=== PATIENT | male | born 1990 | race Caucasian/White ===

== ENCOUNTER 2019-07-18 16:49 | Emergency (ER) | payer BC ==
[2019-07-18 17:07] VITALS: PULSE 68
--- NOTE | 2019-07-18 18:11 | EDM.PDOC ---
ED HPI GENERAL MEDICAL PROBLEM - General Chief Complaint: General Stated Complaint: needs abcess drained belly button Time Seen by Provider: 07/18/19 18:03 Source of Information: Reports: Patient - History of Present Illness INITIAL COMMENTS - FREE TEXT/NARRATIVE: HISTORY AND PHYSICAL: History of present illness: [Patient presents with history of umbilical abscess, which is recurrent, last drained 5 years prior no fever nausea vomiting chills sweats Changes tried to drain the lesion at home, as he usually does without benefit I did use an 11 blade to make a small incision to try and achieve drainage however there was no exudative discharge, the area is slightly indurated at 3: 00 on the navel mother was no umbilical hernia after incision there was odor stent with gram-negative rods type odor however no exudate was expressed I did culture some cereus Cerous sanguinous fluid/blood] No fever nausea vomiting chills sweats Review of systems: As per history of present illness and below otherwise all systems reviewed and negative. Past medical history: As per history of present illness and as reviewed below otherwise noncontributory. Surgical history: As per history of present illness and as reviewed below otherwise noncontributory. Social history: No reported history of drug or alcohol abuse. Family history: As per history of present illness and as reviewed below otherwise noncontributory. Physical exam: HEENT: Atraumatic, normocephalic, pupils reactive, negative for conjunctival pallor or scleral icterus, mucous membranes moist, throat clear, neck supple, nontender, trachea midline. Lungs: Clear to auscultation, breath sounds equal bilaterally, chest nontender. Heart: S1S2, regular, negative for clicks, rubs, or JVD. Abdomen: Soft, nondistended, nontender. Negative for masses or hepatosplenomegaly. Negative for costovertebral tenderness. [place] is slightly bulged and reddened consistent with early abscess formation no umbilical hernia appreciated there is induration to the anatomical left 3:00 on the umbilicus no exudate is expressed Pelvis: Stable nontender. Genitourinary: Deferred. Rectal: Deferred. Extremities: Atraumatic, negative for cords or calf pain. Neurovascular unremarkable. Neuro: Awake, alert, oriented. Cranial nerves II through XII unremarkable. Cerebellum unremarkable. Motor and sensory unremarkable throughout. Exam nonfocal. Diagnostics: [Culture ] Therapeutics: [rocephine Bactrim General surgery RP W ] Impression: [Umbilical cellulitis-small lesion of induration approximately the size of a quarter roll to the navel] Definitive disposition and diagnosis as appropriate pending reevaluation and review of above. Abdomen Pain Score (Numeric/FACES): 2 - Related Data Allergies Allergy/AdvReac Type Severity Reaction Status Date / Time No Known Allergies Allergy Verified 07/18/19 16:59 Home Meds: Home Meds . [No Known Home Meds] 09/22/14 [History] Past Medical History - Past Health History Medical/Surgical History: Denies Medical/Surgical History - Infectious Disease History Infectious Disease History: Reports: Chicken Pox Social & Family History - Family History Family Medical History: Noncontributory - Tobacco Use Smoking Status *Q: Never Smoker - Caffeine Use Caffeine Use: Reports: Coffee - Recreational Drug Use Recreational Drug Use: Yes Recreational Drug Type: Reports: Marijuana/Hashish Other Recreational Drug Type: a few months ago Recreational Drug Use Frequency: Rarely ED ROS GENERAL - Review of Systems Review Of Systems: See Below ED EXAM, GENERAL - Physical Exam Exam: See Below Course - Vital Signs Last Recorded V/S: Last Vital Signs Temp 97.9 F 07/18/19 16:59 Pulse 68 07/18/19 16:59 Resp 17 07/18/19 16:59 BP 135/89 07/18/19 16:59 Pulse Ox 99 07/18/19 16:59 - Orders/Labs/Meds Meds: Medications Discontinued Medications Generic Name Dose Route Start Last Admin Trade Name Prema PRN Reason Stop Dose Admin Lidocaine HCl 5 ml 07/18/19 17:31 07/18/19 17:54 Xylocaine-Mpf 1% INJECT 07/18/19 17:32 5 ml ONETIME ONE Administration Departure - Departure Time of Disposition: 18:11 Disposition: Home, Self-Care 01 Condition: Good Clinical Impression: Cellulitis - Discharge Information Referrals: PCP,Not In Area [Primary Care Provider] - Additional Instructions: Patient is prescribed Return if symptoms persist or worsen Follow-up with general surgery, referral for [facility] - [facility] Professional Building [address] [place] [address], [address] [place] [address] The following information is given to patients seen in the emergency department who are being discharged to home. This information is to outline your options for follow-up care. We provide all patients seen in our emergency department with a follow-up referral. The need for follow-up, as well as the timing and circumstances, are variable depending upon the specifics of your emergency department visit. If you don't have a primary care physician on staff, we will provide you with a referral. We always advise you to contact your personal physician following an emergency department visit to inform them of the circumstance of the visit and for follow-up with them and/or the need for any referrals to a consulting specialist. The emergency department will also refer you to a specialist when appropriate. This referral assures that you have the opportunity for follow-up care with a specialist. All of these measure are taken in an effort to provide you with optimal care, which includes your follow-up. Under all circumstances we always encourage you to contact your private physician who remains a resource for coordinating your care. When calling for follow-up care, please make the office aware that this follow-up is from your recent emergency room visit. If for any reason you are refused follow-up, please contact the [facility] emergency department at and asked to speak to the emergency department charge nurse. Sepsis Event Note - Evaluation Sepsis Screening Result: No Definite Risk - Focused Exam Vital Signs: Vital Signs Temp Pulse Resp BP Pulse Ox 07/18/19 16:59 97.9 F 68 17 135/89 99 Date Exam was Performed: 07/18/19 Time Exam was Performed: 18:03
[2019-07-18] MEDS ORDERED: cefTRIAXone 1 GM Vial IM ONE (18:13)
[2019-07-18] MEDS ORDERED: Lidocaine 1% 2 ML ONE (18:17)
[2019-07-18 19:23] VITALS: BP 136/77
== END 2019-07-18 18:35 | disposition home or self-care (01) ==
LOC: MW.ED 16:49
DX: L03.316 Cellulitis of umbilicus (principal)
CPT/HCPCS: 10060; 87070; 96372; 99283; J0696; J2001

== ENCOUNTER 2020-08-17 12:31 | Day surgery (SDC) | payer BC ==
[2020-08-17] MEDS ORDERED: Iopamidol 200-M 10 ML vial ITHECAL ONE (13:00)
[2020-08-17] MEDS ORDERED: Ropivacaine 0.5% 5 MG/ML 30 ML SDV INJECT ONE (13:00)
[2020-08-17] MEDS ORDERED: Betamethasone Acetate/Betamethasone Sod Phosphate 30 MG/5 ML MDV EPIDUR ONE (13:00)
[2020-08-17] MEDS ORDERED: Lidocaine 2% 5 ML SDV INJECT ONE (13:00)
--- NOTE | 2020-08-17 16:50 | OR ---
SURGEON: Melania Delgado D.O. DATE OF PROCEDURE: 08/17/2020 PRIMARY SURGEON: Melania Delgado DO ASSISTANTS: OR staff present: 1. Kelsi Fragoso. 2. Delio Williamson. 3. RT. Yesenia WOUND CLASS: I. PREOPERATIVE DIAGNOSIS: Coccydynia. POSTOPERATIVE DIAGNOSIS: Coccydynia. PROCEDURES PERFORMED: 1. Coccyx injection. 2. Fluoroscopic guidance for needle placement. 3. Local with oral Valium for sedation. SCREENING QUESTIONS: The patient answered "No" to all the followin. Are you allergic to iodine, Betadine or latex? 2. Do you have a bleeding disorder? 3. Do you have any joint replacements, heart valve replacements or a pacemaker? 4. Are you on any anti-inflammatories or blood thinners? 5. Do you have any current local or systemic infections? DESCRIPTION OF PROCEDURE: The patient had the procedure thoroughly explained including all possible risks, benefits and alternatives. Consent was signed in my clinic indicating understanding and willingness to proceed. The patient presented to the outpatient Surgery Center and was escorted to the dressing room to disrobe and change into a hospital gown. Preoperative vital signs were taken and stable. The patient reported that Valium was taken prior to the procedure. The patient was brought to the procedure room and placed in the prone position on the procedure room table. A pillow was placed under the hips in order to flatten the lumbar lordosis. The back was prepped with ChloraPrep and sterilely draped. All personnel in the operating room were dressed in appropriate attire including surgical scrubs, head and shoe covers. This was to ensure sterility while in the treatment room. During the time fluoroscopy was in use all personnel in the operating room wore lead stevens with thyroid collars. Sterile technique was used during the procedure. The patient was awake and conversant throughout the procedure. The fluoroscope was positioned to provide an AP/Lateral view of the sacrum and coccyx. There was no evidence of infection at the site of needle insertion. The skin was anesthetized with 2% Lidocaine with a sterile 27-gauge 1.5 inch needle. Then under fluoroscopy a 22-gauge 3.5 inch spinal needle was placed at the coccyx. IsoVue-200 contrast dyewas injected under live fluoroscopy and no intravascular flow pattern was observed. After negative aspiration of heme, the following solution was injected: 0.5% Ropivacaine, Celestone and 2% Lidocaine. The patient tolerated the procedure well and vital signs were stable during and after the procedure. The staff escorted the patient to the recovery area and the patient was released to home in stable condition after a brief stay in the recovery room monitored by the nurse. The patient was given both oral and written discharge and follow up instructions. Recommended follow up in two weeks. The patient is able to contact the office if there are any additional problems or questions in the meantime. The patient was given discharge instruction and verbalizes understanding including understanding of those signs and symptoms that would require emergency care. PREOPERATIVE PAIN: 5+/10. POSTOPERATIVE PAIN: 0/10. FOLLOWUP: In the Pain Clinic in 1 month. CINDY / ABDIAS /[id number] MTDSantiago
== END 2020-08-17 13:44 ==
LOC: MW.SDS 12:31
PROVIDERS: ATTEND Anesthesiology
DX: G89.29 Other chronic pain (principal); M53.3 Sacrococcygeal disorders, not elsewhere classified; M79.18 Myalgia, other site; K21.9 Gastro-esophageal reflux disease without esophagitis; E66.9 Obesity, unspecified; Z68.36 Body mass index [BMI] 36.0-36.9, adult